=== PATIENT | female | born 1995 | race Caucasian/White ===

== ENCOUNTER 2019-10-20 18:30 | Inpatient (IN) | payer OTHER ==
[2019-10-20] MEDS ORDERED: ELECTROLYTE-148 SOLN 500 ML IV ONE ×2 (19:00→20:00)
[2019-10-20 21:19] LABS: BASO % 0.3 % (0-2.0); EOS % 0.1 % (0-4.5); HEMATOCRIT 31.5 % (32.4-45.2); HEMOGLOBIN 9.9 GM/dL (10.7-15.3); LYMPH % 16.4 % (8-40); MCHC 31.6 g/dl (32.0-36.0); MEAN CELL VOLUME 69.7 fl (80-96); MEAN PLT VOLUME 10.1 fl (7.5-11.1); MONO % 6.5 % (3.8-10.2); NEUT % 76.7 % (42.8-82.8); PLATELET COUNT 240 K/MM3 (134-434); RBC 4.52 M/mm3 (3.60-5.2); RDW 18.4 % (11.6-15.6); WHITE BLOOD COUNT 9.8 K/mm3 (4.0-10.0)
[2019-10-20 21:26] LABS: INR 0.93 (0.83-1.09)
[2019-10-20 21:29] LABS: ACTIVATED PTT 25.9 SECONDS (25.2-36.5)
[2019-10-20 21:33] LABS: BLOOD UREA NITROGEN 5.4 mg/dL (7-18); CALCIUM 8.5 mg/dL (8.5-10.1); CREATININE 0.5 mg/dL (0.55-1.3); POTASSIUM 4.3 mmol/L (3.5-5.1)
[2019-10-20] MEDS ORDERED: FENTANYL/BUPIVACAINE/NS/PF - PCEA - 50 ML DISP.SYRIN EP ONE (21:44)
[2019-10-20] MEDS ORDERED: PCA PUMP NR ONE (21:44)
[2019-10-20 21:47] LABS: ANISOCYTOSIS 3+; MACROCYTOSIS 1+
[2019-10-20 21:48] LABS: PLATELET ESTIMATE ADEQUATE
[2019-10-20 22:24] LABS: HIV INTERPRETATION NEGATIVE (NEGATIVE)
[2019-10-20 22:27] VITALS: BMI 28.3
[2019-10-20] MEDS ORDERED: NALOXONE HCL 0.4 MG/ML VIAL IVPUSH PRN (23:14)
[2019-10-20] MEDS ORDERED: FENTANYL/BUPIVACAINE/NS/PF - PCEA - 50 ML DISP.SYRIN EP SCH (23:15)
[2019-10-21] MEDS ORDERED: OXYTOCIN 20 UNITS in 0.9% NS 20 UNIT/1,000 ML INFUS.BAG IV ONE ×2 (01:36→03:39)
[2019-10-21] MEDS ORDERED: LIDOCAINE HCL 1% PRESERVATIVE FREE - 30ML VIAL ONE (01:36)
[2019-10-21] MEDS ORDERED: BENZOCAINE 28 GM HEMORRHOIDAL OINTMENT TP PRN (03:20)
[2019-10-21] MEDS ORDERED: BENZOCAINE 20% 57 GM BOTTLE TP PRN (03:20)
[2019-10-21] MEDS ORDERED: WITCH HAZEL 50% (TUCKS) 40 PAD/JAR PAD TP PRN (03:20)
[2019-10-21] MEDS ORDERED: BISACODYL 10 MG SUPP.RECT RC PRN (03:20)
[2019-10-21] MEDS ORDERED: METHYLERGONOVINE MALEATE 0.2 MG/1 ML AMP IM PRN (03:20)
[2019-10-21] MEDS: ACETAMINOPHEN 325 MG TABLET (FP) PO PRN ×2 (08:29→16:51)
[2019-10-21] MEDS: IBUPROFEN 600 MG TABLET (FP) PO PRN ×2 (08:30→16:50)
[2019-10-21 08:35] LABS: CORD HCO3 18.4 mmHg (20-29); CORD PCO2 59.6 mmHg (30-78); CORD pH 7.108 (7.14-7.44)
[2019-10-21 08:38] LABS: CORD HCO3 18.2 mmHg (20-29); CORD PCO2 63.8 mmHg (30-78); CORD pH 7.072 (7.14-7.44)
[2019-10-22 09:14] LABS: BASO % 0.3 % (0-2.0); EOS % 1.1 % (0-4.5); HEMATOCRIT 26.8 % (32.4-45.2); HEMOGLOBIN 8.3 GM/dL (10.7-15.3); LYMPH % 26.5 % (8-40); MCH 21.8 pg (25.7-33.7); MCHC 31.1 g/dl (32.0-36.0); MEAN PLT VOLUME 10.1 fl (7.5-11.1); MONO % 6.2 % (3.8-10.2); NEUT % 65.9 % (42.8-82.8); PLATELET COUNT 204 K/MM3 (134-434); RBC 3.82 M/mm3 (3.60-5.2); RDW 18.5 % (11.6-15.6); WHITE BLOOD COUNT 13.1 K/mm3 (4.0-10.0)
[2019-10-22] MEDS: IBUPROFEN 600 MG TABLET (FP) PO PRN (09:49)
[2019-10-22] MEDS: ACETAMINOPHEN 325 MG TABLET (FP) PO PRN (09:49)
[2019-10-22] MEDS ORDERED: DIPHTH,PERTUSS(ACELL),TET 0.5 ML DISP.SYRIN IM ONE (10:00)
[2019-10-22 16:03] VITALS: BP 119/66; PULSE 77; TEMP 98.9
[2019-10-22] MEDS ORDERED: SENNOSIDES/DOCUSATE COMBO (SENNA PLUS) TABLET (UD) PO PRN (22:00)
== END 2019-10-22 14:55 | disposition home or self-care (01) | DRG 560 ==
LOC: JLDR 18:30 → J3W 10-21 05:30
PROVIDERS: ADMIT Obstetrics & Gynecology; ATTEND Obstetrics & Gynecology
PROC: 10E0XZZ Delivery of Products of Conception, External Approach (ICD-10-PCS; principal; 2019-10-21)
PROC: 0HQ9XZZ Repair Perineum Skin, External Approach (ICD-10-PCS; 2019-10-21)
PROC: 0W8NXZZ Division of Female Perineum, External Approach (ICD-10-PCS; 2019-10-21)
DX: O70.0 First degree perineal laceration during delivery (principal); Z3A.38 38 weeks gestation of pregnancy; Z37.0 Single live birth
CPT/HCPCS: 36415; 36600; 59409; 80048; 82803; 85025; 85610; 85730; 86780; 86850; 86900; 86901; 87389; 90715